=== PATIENT | female | born 1985 | race Caucasian/White ===

== ENCOUNTER 2022-05-21 08:07 | Emergency (ER) | payer OTHER ==
[~2022-05-21] VITALS: Ht 172.7 cm; Wt 90.7 kg
[2022-05-21] MEDS ORDERED: VIBRA-TAB100 MG PO (08:54)
[2022-05-21] MEDS ORDERED: MUCINEX1200 M1 PO (08:55)
== END 2022-05-21 09:10 | disposition home or self-care (01) ==
LOC: ED 08:07
DX: J40 Bronchitis, not specified as acute or chronic (principal); J32.9 Chronic sinusitis, unspecified